=== PATIENT | male | born 1950 | race Caucasian/White ===

== ENCOUNTER → 2017-11-30 | Outpatient (CLI) | payer MEDICARE, OTHER ==
--- NOTE | 2017-11-30 15:59 | CT ---
EXAMINATION TYPE: CT brain wo/w con DATE OF EXAM: 11/30/2017 COMPARISON: None HISTORY: Patient complains of fatigue, dizziness, and confusion. CT DLP: 1592 mGycm, Automated exposure control for dose reduction was used. CONTRAST: Patient injected with 100 mL of Isovue 300. CT of the brain is performed utilizing 3 mm thick sections through the posterior fossa and 3 mm thick sections through the remaining calvarium. Study is performed within 24 hours of arrival to the hospital. No abnormal hyperdensity is present to suggest an acute intracranial hemorrhage. No mass lesion is evident. No acute infarcts are evident. Ventricles and sulci are mildly prominent for the patient age. Following contrast, no abnormal enhancement is evident. Mucous retention cysts and mucosal thickenings within the right maxillary sinus and bilateral ethmoid air cells. Remaining paranasal sinuses and mastoid air cells are clear. There is superficial soft tissue area of increased density measuring 1.2 cm in the right parietal Sushant salazar region. There is a prior left temporal craniotomy. IMPRESSIONS: 1. No acute intracranial changes. 2. Paranasal sinus mucosal thickening discussed above.
== END | disposition home or self-care (01) ==
LOC: RADCTMAIN 14:56
PROVIDERS: ATTEND Psychiatry & Neurology Neurology
DX: J34.89 Other specified disorders of nose and nasal sinuses (principal); S06.9X0S Unspecified intracranial injury without loss of consciousness, sequela
CPT/HCPCS: 70470; Q9967